=== PATIENT | female | born 1995 | race Caucasian/White ===

== ENCOUNTER 2016-10-10 15:00 | Inpatient (IN) | payer MEDICAID ==
[~2016-10-10] VITALS: Ht 160 cm; Wt 47.8 kg
[2016-10-10 17:23] LABS: PLATELET COUNT 135 x10^3mcL (130-400)
[2016-10-10 17:34] LABS: RED CELL DISTRIBUTION WIDTH 16.7 % (11.5-14.5)
[2016-10-10 17:36] LABS: CALCIUM 8.3 mg/dL (8.5-10.1); CARBON DIOXIDE 27.3 mmol/L (21-32); CHLORIDE SERUM 106 mmol/L (98-107); CREATININE SERUM 0.9 mg/dL (0.6-1.0); GFR1 > 60 mL/min; GLUCOSE SERUM 88 mg/dL (74-106); POTASSIUM SERUM 3.6 mmol/L (3.5-5.1); SODIUM SERUM 141 mmol/L (136-145)
[2016-10-10 17:47] LABS: ALBUMIN 3.6 g/dL (3.4-5.0); ALKALINE PHOSPHATASE 58 U/L (46-116); ALT/SGPT 20 U/L (14-59); AMYLASE 38 U/L (25-115); AST/SGOT 18 U/L (15-37); BILIRUBIN TOTAL 0.3 mg/dL (0.20-1.00); LIPASE 71 IU/L (73-393); TOTAL PROTEIN, SERUM 6.2 g/dL (6.4-8.2)
[2016-10-10 18:03] LABS: BAND NEUTROPHIL 0 % (0-10); BASOPHIL 0 % (0-2); SEGMENTED NEUTROPHILS 56 % (37-75)
[2016-10-10 18:04] LABS: MONOCYTE 18 % (0-7)
[2016-10-10] MEDS ORDERED: PHEDML (18:04)
[2016-10-10] MEDS ORDERED: REG5 (18:05)
[2016-10-10] MEDS ORDERED: ZOF4 (18:06)
[2016-10-10 20:09] VITALS: BP 125/38
[2016-10-10 20:15] LABS: CHOLESTEROL/HDL RATIO 2.8
[2016-10-10 20:17] LABS: FREE T4 1.12 ng/dL (0.76-1.46); FREE THYROXINE INDEX 2.3 ug/dL (1.4-4.5); T4(THYROXINE) 6.1 ug/dL (4.7-13.3)
[2016-10-10 20:39] LABS: T3 TOTAL 1.07 ng/mL
[2016-10-10 20:43] VITALS: BP 125/98
[2016-10-11 00:45] LABS: BASOPHIL % 0.8 % (0-2)
[2016-10-11 00:48] LABS: PLATELET COUNT 124 x10^3mcL (130-400); RED CELL DISTRIBUTION WIDTH 16.5 % (11.5-14.5)
[2016-10-11 05:24] VITALS: BP 100/58
[2016-10-11 06:28] LABS: CALCIUM 7.8 mg/dL (8.5-10.1); CARBON DIOXIDE 27.1 mmol/L (21-32); CHLORIDE SERUM 106 mmol/L (98-107); CREATININE SERUM 0.9 mg/dL (0.6-1.0); GFR1 > 60 mL/min; GLUCOSE SERUM 82 mg/dL (74-106); MAGNESIUM 1.7 mg/dL (1.8-2.4); PHOSPHOROUS 4.3 mg/dL (2.5-4.9); POTASSIUM SERUM 3.5 mmol/L (3.5-5.1); SODIUM SERUM 141 mmol/L (136-145)
[2016-10-11 07:25] LABS: PLATELET COUNT 134 x10^3mcL (130-400)
[2016-10-11 07:43] LABS: RED CELL DISTRIBUTION WIDTH 16.6 % (11.5-14.5)
[2016-10-11 09:05] VITALS: BP 118/73
[2016-10-11 09:07] LABS: microscopic required? NO
[2016-10-11 09:39] LABS: BAND NEUTROPHIL 1 % (0-10); BASOPHIL 0 % (0-2); MONOCYTE 22 % (0-7); SEGMENTED NEUTROPHILS 44 % (37-75); rbc morphology (normal/abnorm) NORMAL (NORMAL)
[2016-10-11 09:40] LABS: PLATELET MORPHOLOGY PLATELETS NORMAL
[2016-10-11 10:23] LABS: UA SPECIFIC GRAVITY 1.015 (1.005-1.035); urine erythrocyte NEGATIVE (NEGATIVE)
[2016-10-11 14:13] LABS: AMPHETAMINE QUAL UR NONE DETECTED (NEG <=1000)
[2016-10-11 18:07] VITALS: BP 123/71
[2016-10-11 21:59] VITALS: BP 111/77
[2016-10-12 05:05] VITALS: BP 117/69
[2016-10-12 09:50] VITALS: BP 129/79
[2016-10-12] MEDS ORDERED: AMITRIPTYLINE H25 MG PO (12:14)
[2016-10-12] MEDS ORDERED: ZOFRAN ODT4 MG SL (13:30)
[2016-10-12 13:32] VITALS: BP 129/79
[2016-10-12] MEDS ORDERED: REG10 PO (13:38)
[2016-10-12] MEDS ORDERED: COMPAZINE5 M1 PO (14:28)
== END 2016-10-12 14:42 | disposition home or self-care (01) | DRG 54 ==
LOC: ED 15:00 → MU 19:16 → DU 19:16 → MU 10-11 08:16
PROVIDERS: Emergency Medicine; Internal Medicine Gastroenterology; ADMIT Family Medicine
PROC: 0DJ08ZZ Inspection of Upper Intestinal Tract, Via Natural or Artificial Opening Endoscopic (ICD-10-PCS; principal; 2016-10-12 08:00)
DX: G43.A0 Cyclical vomiting, in migraine, not intractable (principal); D69.6 Thrombocytopenia, unspecified; E83.42 Hypomagnesemia; E83.51 Hypocalcemia; F12.90 Cannabis use, unspecified, uncomplicated; G89.29 Other chronic pain; D72.819 Decreased white blood cell count, unspecified; F84.5 Asperger's syndrome; H91.8X3 Other specified hearing loss, bilateral; Z68.1 Body mass index [BMI] 19.9 or less, adult; F17.210 Nicotine dependence, cigarettes, uncomplicated; Z91.19 Patient's noncompliance with other medical treatment and regimen
CPT/HCPCS: 43235; 80307; 83880; 84439; C9113; G0480; J1200; J1610; J2250; J2270; J2310; J2405; J3010; J3475; J3490; J7030; J8597; Q0092

== ENCOUNTER 2016-11-15 00:52 | Emergency (ER) | payer MEDICAID ==
[~2016-11-15 00:52] MED LIST: AMITRIPTYLINE H25 MG PO; COMPAZINE5 M1 PO; PHEDML; REG10 PO; REG5; ZOF4; ZOFRAN ODT4 MG SL
[2016-11-15 03:37] LABS: BASOPHIL % 0.4 % (0-2); PLATELET COUNT 204 x10^3mcL (130-400)
[2016-11-15 03:38] LABS: RED CELL DISTRIBUTION WIDTH 17.5 % (11.5-14.5)
[2016-11-15 04:04] LABS: CALCIUM 8.8 mg/dL (8.5-10.1); CARBON DIOXIDE 27.3 mmol/L (21-32); CHLORIDE SERUM 106 mmol/L (98-107); CREATININE SERUM 0.7 mg/dL (0.6-1.0); GFR1 > 60 mL/min; GLUCOSE SERUM 94 mg/dL (74-106); POTASSIUM SERUM 3.8 mmol/L (3.5-5.1); SODIUM SERUM 140 mmol/L (136-145)
[2016-11-15 04:09] LABS: ALBUMIN 3.9 g/dL (3.4-5.0); ALKALINE PHOSPHATASE 57 U/L (46-116); ALT/SGPT 20 U/L (14-59); AST/SGOT 18 U/L (15-37); BILIRUBIN TOTAL 0.32 mg/dL (0.20-1.00); LIPASE 111 IU/L (73-393); TOTAL PROTEIN, SERUM 7.5 g/dL (6.4-8.2)
[2016-11-15 05:43] VITALS: BP 107/60
== END 2016-11-15 05:43 | disposition home or self-care (01) ==
LOC: ED 00:52
PROVIDERS: Emergency Medicine
DX: R10.31 Right lower quadrant pain (principal); R11.2 Nausea with vomiting, unspecified; E27.40 Unspecified adrenocortical insufficiency
CPT/HCPCS: J1200; J2270; J2405; J7030

== ENCOUNTER 2016-11-16 17:34 | Emergency (ER) | payer MEDICAID ==
[~2016-11-16] VITALS: Ht 162.6 cm; Wt 49.9 kg
[2016-11-16 19:12] LABS: BASOPHIL % 0.5 % (0-2); PLATELET COUNT 233 x10^3mcL (130-400)
[2016-11-16 19:13] LABS: CALCIUM 8.9 mg/dL (8.5-10.1); CARBON DIOXIDE 27.2 mmol/L (21-32); CHLORIDE SERUM 102 mmol/L (98-107); CREATININE SERUM 0.7 mg/dL (0.6-1.0); GFR1 > 60 mL/min; GLUCOSE SERUM 102 mg/dL (74-106); POTASSIUM SERUM 3.8 mmol/L (3.5-5.1); SODIUM SERUM 139 mmol/L (136-145)
[2016-11-16 19:17] LABS: RED CELL DISTRIBUTION WIDTH 16.9 % (11.5-14.5)
[2016-11-16 19:18] LABS: ALBUMIN 4.1 g/dL (3.4-5.0); ALKALINE PHOSPHATASE 60 U/L (46-116); ALT/SGPT 16 U/L (14-59); AST/SGOT 13 U/L (15-37); BILIRUBIN TOTAL 0.26 mg/dL (0.20-1.00); LIPASE 99 IU/L (73-393); TOTAL PROTEIN, SERUM 7.7 g/dL (6.4-8.2)
[2016-11-16 20:51] LABS: MAGNESIUM 2.2 mg/dL (1.8-2.4)
[2016-11-16 20:54] LABS: CHOLESTEROL/HDL RATIO 2.5
[2016-11-16 20:57] LABS: T3 TOTAL 1.19 ng/mL
[2016-11-16 21:32] VITALS: BP 101/50
[2016-11-16 21:38] LABS: FREE T4 1.1 ng/dL (0.76-1.46); FREE THYROXINE INDEX 2.9 ug/dL (1.4-4.5)
== END 2016-11-16 21:00 | disposition left against medical advice (07) ==
LOC: ED 17:34 → DU 19:31 → ED 19:31
PROVIDERS: Emergency Medicine; Family Medicine
DX: K29.00 Acute gastritis without bleeding (principal); E86.0 Dehydration; G43.A0 Cyclical vomiting, in migraine, not intractable; K22.6 Gastro-esophageal laceration-hemorrhage syndrome; E27.40 Unspecified adrenocortical insufficiency; Z79.899 Other long term (current) drug therapy; Z88.0 Allergy status to penicillin; Z88.6 Allergy status to analgesic agent; Z88.8 Allergy status to other drugs, medicaments and biological substances
CPT/HCPCS: 80307; 83880; 84439; J1200; J2765; J7030; J8597; Q0092

== ENCOUNTER 2016-12-27 22:43 | Emergency (ER) | payer SELFPAY ==
[2016-12-28 00:07] LABS: BASOPHIL % 0.5 % (0-2); PLATELET COUNT 265 x10^3mcL (130-400)
[2016-12-28 00:08] LABS: RED CELL DISTRIBUTION WIDTH 15.1 % (11.5-14.5)
[2016-12-28 00:16] LABS: CALCIUM 9.4 mg/dL (8.5-10.1); CARBON DIOXIDE 25.2 mmol/L (21-32); CHLORIDE SERUM 105 mmol/L (98-107); CREATININE SERUM 0.8 mg/dL (0.6-1.0); GFR1 > 60 mL/min; GLUCOSE SERUM 103 mg/dL (74-106); POTASSIUM SERUM 3.9 mmol/L (3.5-5.1); SODIUM SERUM 138 mmol/L (136-145)
[2016-12-28 00:21] LABS: ALKALINE PHOSPHATASE 58 U/L (46-116); ALT/SGPT 17 U/L (14-59); AST/SGOT 17 U/L (15-37); BILIRUBIN TOTAL 0.3 mg/dL (0.20-1.00); TOTAL PROTEIN, SERUM 7.8 g/dL (6.4-8.2)
[2016-12-28 01:06] LABS: AMPHETAMINE QUAL UR NONE DETECTED (NEG <=1000)
[2016-12-28 01:12] VITALS: BP 111/85
== END 2016-12-28 01:12 | disposition home or self-care (01) ==
LOC: ED 22:43
PROVIDERS: Emergency Medicine
DX: R55 Syncope and collapse (principal); G43.A0 Cyclical vomiting, in migraine, not intractable
CPT/HCPCS: J1200; J2550

== ENCOUNTER 2017-01-03 23:05 | Emergency (ER) | payer SELFPAY ==
[2017-01-04 01:11] LABS: PLATELET COUNT 233 x10^3mcL (130-400)
[2017-01-04 01:15] LABS: RED CELL DISTRIBUTION WIDTH 15.4 % (11.5-14.5)
[2017-01-04 01:19] LABS: CALCIUM 8.6 mg/dL (8.5-10.1); CARBON DIOXIDE 25.9 mmol/L (21-32); CHLORIDE SERUM 105 mmol/L (98-107); CREATININE SERUM 0.8 mg/dL (0.6-1.0); GFR1 > 60 mL/min; GLUCOSE SERUM 95 mg/dL (74-106); SODIUM SERUM 139 mmol/L (136-145)
[2017-01-04 01:24] LABS: ALBUMIN 3.8 g/dL (3.4-5.0); ALKALINE PHOSPHATASE 58 U/L (46-116); ALT/SGPT 18 U/L (14-59); AST/SGOT 16 U/L (15-37); BILIRUBIN TOTAL 0.16 mg/dL (0.20-1.00); TOTAL PROTEIN, SERUM 7.1 g/dL (6.4-8.2)
[2017-01-04 02:41] VITALS: BP 113/49
== END 2017-01-04 02:41 | disposition home or self-care (01) ==
LOC: ED 23:05
PROVIDERS: Emergency Medicine
DX: G43.A0 Cyclical vomiting, in migraine, not intractable (principal); R55 Syncope and collapse; Z79.899 Other long term (current) drug therapy
CPT/HCPCS: J1200; J2405; J7030

== ENCOUNTER 2017-02-24 00:41 | Emergency (ER) | payer SELFPAY ==
[2017-02-24 04:30] LABS: CHLORIDE SERUM 107 mmol/L (98-107); POTASSIUM SERUM 3.7 mmol/L (3.5-5.1)
[2017-02-24 04:46] LABS: CALCIUM 8.6 mg/dL (8.5-10.1); CARBON DIOXIDE 24.4 mmol/L (21-32); CREATININE SERUM 0.8 mg/dL (0.6-1.0); GFR1 > 60 mL/min; GLUCOSE SERUM 76 mg/dL (74-106); SODIUM SERUM 142 mmol/L (136-145)
[2017-02-24 04:51] LABS: ALBUMIN 4.5 g/dL (3.4-5.0); ALKALINE PHOSPHATASE 59 U/L (46-116); ALT/SGPT 20 U/L (14-59); AST/SGOT 24 U/L (15-37); BILIRUBIN TOTAL 0.31 mg/dL (0.20-1.00); LIPASE 123 IU/L (73-393)
[2017-02-24 05:02] VITALS: BP 125/67
== END 2017-02-24 05:02 | disposition home or self-care (01) ==
LOC: ED 00:41
PROVIDERS: Emergency Medicine
DX: R11.2 Nausea with vomiting, unspecified (principal); Z88.0 Allergy status to penicillin; Z88.5 Allergy status to narcotic agent; Z88.1 Allergy status to other antibiotic agents; Z88.8 Allergy status to other drugs, medicaments and biological substances
CPT/HCPCS: J1200; J2550; J7030

== ENCOUNTER → 2017-04-09 | Outpatient (CLI) | payer MEDICAID | END | disposition home or self-care (01) | LOC: US 12:29 | PROC: BH42ZZZ Ultrasonography of Bilateral Breasts (ICD-10-PCS; principal; 2017-04-09) | DX: Z12.39 Encounter for other screening for malignant neoplasm of breast (principal); E01.0 Iodine-deficiency related diffuse (endemic) goiter | CPT/HCPCS: 76641 ==

== ENCOUNTER → 2017-04-19 | Outpatient (CLI) | payer MEDICAID | END | disposition home or self-care (01) | LOC: US 13:59 | PROC: BG44ZZZ Ultrasonography of Thyroid Gland (ICD-10-PCS; principal; 2017-04-19) | DX: E01.0 Iodine-deficiency related diffuse (endemic) goiter (principal) ==

== ENCOUNTER 2017-10-29 21:17 | Emergency (ER) | payer OTHER ==
[2017-10-30] VITALS: BP 125/68
[2017-10-30 00:39] LABS: BASOPHIL % 0.3 % (0-2); PLATELET COUNT 165 x10^3mcL (130-400)
[2017-10-30 00:42] LABS: RED CELL DISTRIBUTION WIDTH 15.6 % (11.5-14.5)
[2017-10-30 00:55] LABS: ALBUMIN 2.9 g/dL (3.4-5.0); ALKALINE PHOSPHATASE 38 U/L (46-116); ALT/SGPT 14 U/L (14-59); AST/SGOT 10 U/L (15-37); BILIRUBIN TOTAL 0.12 mg/dL (0.20-1.00); CALCIUM 7.9 mg/dL (8.5-10.1); CARBON DIOXIDE 22.4 mmol/L (21-32); CHLORIDE SERUM 104 mmol/L (98-107); CREATININE SERUM 0.5 mg/dL (0.6-1.0); GFR1 > 60 mL/min; GLUCOSE SERUM 124 mg/dL (74-106); LIPASE 115 IU/L (73-393); SODIUM SERUM 135 mmol/L (136-145); TOTAL PROTEIN, SERUM 6.3 g/dL (6.4-8.2)
[2017-10-30 00:58] LABS: POTASSIUM SERUM 2.9 mmol/L (3.5-5.1)
== END 2017-10-30 00:55 | disposition left against medical advice (07) ==
LOC: ED 21:17
PROVIDERS: Emergency Medicine
DX: O26.891 Other specified pregnancy related conditions, first trimester (principal); E87.6 Hypokalemia; B34.9 Viral infection, unspecified; Z3A.12 12 weeks gestation of pregnancy; Z88.1 Allergy status to other antibiotic agents; Z88.5 Allergy status to narcotic agent
CPT/HCPCS: 87804; J2930; J7030; J7512; J7613; Q0092

== ENCOUNTER 2020-06-26 13:04 | Emergency (ER) | payer OTHER, SELFPAY ==
[~2020-06-26] VITALS: Ht 160 cm; Wt 48.5 kg
[2020-06-26 13:38] VITALS: Ht 160 cm; Wt 48.5 kg
[2020-06-26 15:40] LABS: BASOPHIL % 0.5 % (0.2-1.3); PLATELET COUNT 211 x10^3mcL (179-408)
[2020-06-26 15:42] LABS: RED CELL DISTRIBUTION WIDTH 14.8 % (12.3-17.7)
[2020-06-26 15:50] LABS: CALCIUM 8.5 mg/dL (8.5-10.1); CARBON DIOXIDE 25.3 mmol/L (21-32); CHLORIDE SERUM 106 mmol/L (98-107); CREATININE SERUM 0.7 mg/dL (0.6-1.0); GFR1 > 60 mL/min; GLUCOSE SERUM 90 mg/dL (74-106); POTASSIUM SERUM 4.4 mmol/L (3.5-5.1); SODIUM SERUM 139 mmol/L (136-145)
[2020-06-26 15:54] LABS: ALBUMIN 3.8 g/dL (3.4-5.0); ALKALINE PHOSPHATASE 48 U/L (46-116); ALT/SGPT 18 U/L (14-59); AST/SGOT 27 U/L (15-37); BILIRUBIN TOTAL 0.53 mg/dL (0.20-1.00); TOTAL PROTEIN, SERUM 7.1 g/dL (6.4-8.2)
[2020-06-26 17:50] VITALS: BP 119/71
== END 2020-06-26 17:50 | disposition home or self-care (01) ==
LOC: ED 13:04
PROVIDERS: Emergency Medicine
DX: L03.211 Cellulitis of face (principal); F17.210 Nicotine dependence, cigarettes, uncomplicated; Z88.0 Allergy status to penicillin; Z88.6 Allergy status to analgesic agent; Z88.1 Allergy status to other antibiotic agents
CPT/HCPCS: J1200; Q9967